=== PATIENT | male | born 1985 | race Two or more races ===

== ENCOUNTER 2024-07-11 18:36 | Emergency (ER) | payer MEDICAID ==
[~2024-07-11] VITALS: Ht 170.2 cm; Wt 62.7 kg
[2024-07-11] MEDS ORDERED: HYDR-4902 PO (20:41)
[2024-07-11] MEDS: HYDROcodone-ACET 10/325MG TAB PO ONE (20:49)
[2024-07-11 20:59] VITALS: BP 120/77; PULSE 61; RESP 17; TEMP 98.2; O2SAT 99
== END 2024-07-11 21:18 | disposition home or self-care (01) ==
LOC: ER 18:36
DX: G89.4 Chronic pain syndrome (principal); M54.2 Cervicalgia; M54.30 Sciatica, unspecified side

== ENCOUNTER → 2024-10-06 | Outpatient (CLI) | payer MEDICAID ==
[~2024-10-06] MED LIST: HYDR-4902 PO
--- NOTE | 2024-10-08 22:14 | DVHNC2 ---
Procedure - Pulmonary function test interpretation October 06, 2024 No obstructive or restrictive ventilatory defect. Significant bronchodilator response Total lung capacity is above normal limits, 132% of predicted (8.31 L). Diffusion capacity is above normal limits, 141% of predicted. AMARJIT GARCÍA MD Oct 08, 2024 22:14
== END | disposition home or self-care (01) ==
LOC: RT 08:52
PROVIDERS: ATTEND Internal Medicine Pulmonary Disease
DX: J44.9 Chronic obstructive pulmonary disease, unspecified (principal); F17.200 Nicotine dependence, unspecified, uncomplicated
CPT/HCPCS: 94060; 94727; 94729